=== PATIENT | male | born 1960 | race Caucasian/White ===

== ENCOUNTER 2024-07-06 19:15 | Inpatient (IN) | payer OTHER, MEDICARE ==
--- NOTE | 2024-07-06 20:00 | ED ---
Dizziness HPI - General Chief Complaint: Dizziness Stated Complaint: NV Time Seen by Provider: 07/06/24 19:20 Source: patient, EMS, RN notes reviewed, old records reviewed Mode of arrival: EMS Limitations: no limitations - History of Present Illness Initial Comments: This is a 64-year-old male to ER for evaluation of dizziness tonight patient is having symptoms of vertigo and nausea patient was seen in the hospital yesterday and is felt continued worsening symptoms here in the emergency department room spinning off-balance and difficulty with ambulation. MD Complaint: dizziness, difficulty walking -: hour(s) Timing: gradual onset Description: "room spinning" History of Same: No History of Trauma: No Severity: moderate Improves With: remaining still Worsens With: movement Associated Symptoms: ataxia - Related Data Home Medications Medication Instructions Recorded Confirmed Albuterol Inhaler [Ventolin Hfa 1 puff INHALATION RT-Q4H PRN 07/07/24 07/07/24 Inhaler] Aspirin EC [Ecotrin Low Dose] 81 mg PO DAILY 07/07/24 07/07/24 Cholecalciferol (Vitamin D3) 50 mcg PO DAILY 07/07/24 07/07/24 [Vitamin D3 (50 Mcg = 2000 Iu)] Gabapentin [Neurontin] 400 mg PO TID 07/07/24 07/07/24 Nitroglycerin Sl Tabs [Nitrostat] 0.4 mg SL Q5M PRN 07/07/24 07/07/24 Dilliner-3/Dha/Epa/Fish Oil [Fish Oil 1 cap PO BID 07/07/24 07/07/24 1,000 mg Softgel] PARoxetine HCL [Paxil] 30 mg PO BID 07/07/24 07/07/24 buPROPion SR [Wellbutrin SR] 150 mg PO BID 07/07/24 07/07/24 busPIRone HCL 15 mg PO BID 07/07/24 07/07/24 carvediloL [Coreg] 12.5 mg PO BID 07/07/24 07/07/24 Previous Rx's Medication Instructions Recorded Fenofibrate 50 mg PO DAILY #90 capsule 07/09/24 Meclizine [Antivert] 25 mg PO TID #60 tab 07/09/24 Rosuvastatin Calcium [Crestor] 40 mg PO DAILY #0 07/09/24 Allergies Allergy/AdvReac Type Severity Reaction Status Date / Time atorvastatin AdvReac Unknown Verified 07/07/24 11:38 Review of Systems ROS Statement: Those systems with pertinent positive or pertinent negative responses have been documented in the HPI. ROS Other: All systems not noted in ROS Statement are negative. Past Medical History Past Medical History: Cancer, CVA/TIA, Hyperlipidemia, Hypertension, Myocardial Infarction (CT) Additional Past Medical History / Comment(s): lung CA, cva 2019 right side , History of Any Multi-Drug Resistant Organisms: None Reported Past Surgical History: Back Surgery, Heart Catheterization With Stent, Orthopedic Surgery Additional Past Surgical History / Comment(s): lobectomy, knee , Past Psychological History: Depression Smoking Status: Former smoker Past Alcohol Use History: None Reported Past Drug Use History: Marijuana General Exam Limitations: no limitations General appearance: alert, in no apparent distress, anxious Head exam: Present: atraumatic, normocephalic, normal inspection Eye exam: Present: normal appearance, PERRL, EOMI, nystagmus. Absent: scleral icterus, conjunctival injection, periorbital swelling ENT exam: Present: normal exam, mucous membranes moist Neck exam: Present: normal inspection. Absent: tenderness, meningismus, lymphadenopathy Respiratory exam: Present: normal lung sounds bilaterally. Absent: respiratory distress, wheezes, rales, rhonchi, stridor Cardiovascular Exam: Present: normal rhythm, bradycardia, normal heart sounds. Absent: systolic murmur, diastolic murmur, rubs, gallop, clicks GI/Abdominal exam: Present: soft, normal bowel sounds. Absent: distended, tenderness, guarding, rebound, rigid Extremities exam: Present: normal inspection, full ROM, normal capillary refill. Absent: tenderness, pedal edema, joint swelling, calf tenderness Back exam: Present: normal inspection Neurological exam: Present: alert, oriented X3, CN II-XII intact Psychiatric exam: Present: normal affect, normal mood Skin exam: Present: warm, dry, intact, normal color. Absent: rash Course Vital Signs 07/06/24 07/06/24 07/06/24 19:20 19:45 20:00 Temperature 98.4 F 98.4 F 98.0 F Pulse Rate 55 L 56 L 56 L Pulse Rate [ Electronic Sensing Equipment Assembler ] Respiratory 18 20 20 Rate Blood Pressure 155/100 158/97 158/102 Blood Pressure [Right Arm Sitting] Blood Pressure [Right Arm Standing] Blood Pressure [Right Arm Supine] Blood Pressure [Right Arm] O2 Sat by Pulse 96 98 97 Oximetry 07/06/24 07/06/24 07/06/24 20:15 20:30 20:45 Temperature 98.2 F 98.1 F 98.0 F Pulse Rate 69 65 67 Pulse Rate [ Electronic Sensing Equipment Assembler ] Respiratory 17 17 20 Rate Blood Pressure 147/91 147/88 147/91 Blood Pressure [Right Arm Sitting] Blood Pressure [Right Arm Standing] Blood Pressure [Right Arm Supine] Blood Pressure [Right Arm] O2 Sat by Pulse 96 98 98 Oximetry 07/06/24 07/06/24 07/07/24 21:00 22:35 01:40 Temperature 97.8 F Pulse Rate 65 71 70 Pulse Rate [ Electronic Sensing Equipment Assembler ] Respiratory 20 18 18 Rate Blood Pressure 148/89 147/93 131/76 Blood Pressure [Right Arm Sitting] Blood Pressure [Right Arm Standing] Blood Pressure [Right Arm Supine] Blood Pressure [Right Arm] O2 Sat by Pulse 98 99 96 Oximetry 07/07/24 07/07/24 07/07/24 06:28 07:33 07:55 Temperature 97.9 F Pulse Rate 70 82 Pulse Rate [ Electronic Sensing Equipment Assembler ] Respiratory 18 18 Rate Blood Pressure 124/77 129/83 Blood Pressure [Right Arm Sitting] Blood Pressure [Right Arm Standing] Blood Pressure [Right Arm Supine] Blood Pressure [Right Arm] O2 Sat by Pulse 95 96 98 Oximetry 07/07/24 07/07/24 07/07/24 11:03 16:50 20:00 Temperature 97.9 F 98.0 F Pulse Rate 77 Pulse Rate [ 67 80 Electronic Sensing Equipment Assembler ] Respiratory 16 16 14 Rate Blood Pressure 143/92 Blood Pressure [Right Arm Sitting] Blood Pressure [Right Arm Standing] Blood Pressure [Right Arm Supine] Blood Pressure 150/96 140/85 [Right Arm] O2 Sat by Pulse 98 98 97 Oximetry 07/08/24 07/08/24 07/08/24 00:00 04:00 09:50 Temperature 98.2 F 98.0 F Pulse Rate 59 L Pulse Rate [ 65 55 L Electronic Sensing Equipment Assembler ] Respiratory 15 12 20 Rate Blood Pressure 123/71 Blood Pressure [Right Arm Sitting] Blood Pressure [Right Arm Standing] Blood Pressure [Right Arm Supine] Blood Pressure 134/70 123/67 [Right Arm] O2 Sat by Pulse 97 95 96 Oximetry 07/08/24 07/08/24 07/08/24 13:56 15:22 18:41 Temperature Pulse Rate 61 63 60 Pulse Rate [ Electronic Sensing Equipment Assembler ] Respiratory 20 16 Rate Blood Pressure 122/79 127/80 136/87 Blood Pressure [Right Arm Sitting] Blood Pressure [Right Arm Standing] Blood Pressure [Right Arm Supine] Blood Pressure [Right Arm] O2 Sat by Pulse 98 97 96 Oximetry 07/08/24 07/09/24 07/09/24 21:10 00:19 02:56 Temperature Pulse Rate 62 52 L 68 Pulse Rate [ Electronic Sensing Equipment Assembler ] Respiratory 12 16 18 Rate Blood Pressure 113/79 122/72 Blood Pressure [Right Arm Sitting] Blood Pressure [Right Arm Standing] Blood Pressure [Right Arm Supine] Blood Pressure [Right Arm] O2 Sat by Pulse 98 97 97 Oximetry 07/09/24 07/09/24 07/09/24 07:00 08:24 10:25 Temperature 97.9 F Pulse Rate 51 L 69 Pulse Rate [ 56 L Electronic Sensing Equipment Assembler ] Respiratory 19 20 Rate Blood Pressure 135/87 151/91 Blood Pressure [Right Arm Sitting] Blood Pressure [Right Arm Standing] Blood Pressure 146/91 [Right Arm Supine] Blood Pressure [Right Arm] O2 Sat by Pulse 98 98 Oximetry 07/09/24 07/09/24 07/09/24 10:27 10:29 11:16 Temperature Pulse Rate 53 L Pulse Rate [ 67 69 Electronic Sensing Equipment Assembler ] Respiratory 18 Rate Blood Pressure 145/95 Blood Pressure 125/89 [Right Arm Sitting] Blood Pressure 120/92 [Right Arm Standing] Blood Pressure [Right Arm Supine] Blood Pressure [Right Arm] O2 Sat by Pulse 98 Oximetry 07/09/24 15:10 Temperature 97.9 F Pulse Rate 81 Pulse Rate [ Electronic Sensing Equipment Assembler ] Respiratory 20 Rate Blood Pressure 144/94 Blood Pressure [Right Arm Sitting] Blood Pressure [Right Arm Standing] Blood Pressure [Right Arm Supine] Blood Pressure [Right Arm] O2 Sat by Pulse 98 Oximetry - Reevaluation(s) Reevaluation #1: Medical records reviewed Reevaluation #2: Patient symptoms unchanged Reevaluation #3: Informed of results questions answered Reevaluation #4: Was pt. sent in by a medical professional or institution (, PA, RESERVATIONS AND TICKETING AGENT, urgent care, hospital, or fdc...) When possible be specific @ -no Did you speak to anyone other than the patient for history (EMS, parent, family, police, friend...)? What history was obtained from this source @ -no Did you review nursing and triage notes (agree or disagree)? Why? @ -agree Are old charts reviewed (outside hosp., previous admission, EMS record, old EKG, old radiological studies, urgent care reports/EKG's, fdc records)? Report findings @ -yes Differential Diagnosis (chest pain, altered mental status, abdominal pain women, abdominal pain men, vaginal bleeding, weakness, fever, dyspnea, syncope, headache, dizziness, GI bleed, back pain, seizure, CVA, palpatations, mental health, musculoskeletal)? @ -prior EKG interpreted by me (3pts min.). @ -yes X-rays interpreted by me (1pt min.). @ -no CT interpreted by me (1pt min.). @ -yes negative for acute disease U/S interpreted by me (1pt. min.). @ -no What testing was considered but not performed or refused? (CT, X-rays, U/S, labs)? Why? @ -none What meds were considered but not given or refused? Why? @ -none Did you discuss the management of the patient with other professionals (professionals i.e. , PA, RESERVATIONS AND TICKETING AGENT, lab, RT, psych nurse, social media project manager, salesperson trailers and motor homes, teacher, financial services officer, case mgr)? Give summary @ -no Was smoking cessation discussed for >3mins.? @ -no Was critical care preformed (if so, how long)? @ -no Were there social determinants of health that impacted care today? How? (Homelessness, low income, unemployed, alcoholism, drug addiction, transportation, low edu. Level, literacy, decrease access to med. care, fpc, rehab)? @ -none Was there de-escalation of care discussed even if they declined (Discuss DNR or withdrawal of care, Hospice)? DNR status @ -no What co-morbidities impacted this encounter? (DM, HTN, Smoking, COPD, CAD, Cancer, CVA, ARF, Chemo, Hep., AIDS, mental health diagnosis, sleep apnea, morbid obesity)? @ -none Was patient admitted / discharged? Hospital course, mention meds given and route, prescriptions, significant lab abnormalities, going to OR and other pertinent info. @ - 64 male for acute vertiginous symptoms, patient will admit to rule out acute CVA as cause of vertigo. Patient having difficulty with ambulation and persistent vertigo here in the ER Admitted extremes of age Undiagnosed new problem with uncertain prognosis? @ -no Drug Therapy requiring intensive monitoring for toxicity (Heparin, Nitro, Insulin, Cardizem)? @ -no Were any procedures done? @ -no Diagnosis/symptom? @ -Vertigo, dizziness Acute, or Chronic, or Acute on Chronic? @ -Acute Uncomplicated (without systemic symptoms) or Complicated (systemic symptoms)? @ -Complicated Side effects of treatment? @ -no Exacerbation, Progression, or Severe Exacerbation? @ -exacerbation Poses a threat to life or bodily function? How? (Chest pain, USA, CT, pneumonia, PE, COPD, DKA, ARF, appy, cholecystitis, CVA, Diverticulitis, Homicidal, Suicidal, threat to staff... and all critical care pts) @ -yes 07/15/24 02:05 Reevaluation #5: Differential Dizziness: Benign paroxysmal positional Vertigo, Meniere's disease, otitis media, acoustic neuroma, vertebrobasilar insufficiency, cerebellar stroke, encephalitis, hypovolemic, arrhythmia, coronary artery syndrome, anemia, this is not meant to be an all-inclusive list - Consultations Consultation #1: Spoke with admitting physicians who agreed to admit this patient EKG Findings - EKG Comments: EKG Findings:: EKG is sinus bradycardia 59 NJ 204 QRS 105 QTc 425 - EKG Results: EKG: interpreted by ERMD Medical Decision Making - Medical Decision Making 64 male for acute vertiginous symptoms, patient will admit to rule out acute CVA as cause of vertigo. Patient having difficulty with ambulation and persistent vertigo here in the ER - Lab Data Result diagrams: 07/06/24 20:01 07/06/24 20:01 Lab Results 07/06/24 07/06/24 07/06/24 Range/Units 20:01 20:01 20:01 WBC 11.9 H (3.8-10.6) k/uL RBC 5.01 (4.30-5.90) m/uL Hgb 14.9 (13.0-17.5) gm/dL Hct 45.2 (39.0-53.0) % MCV 90.3 (80.0-100.0) fL MCH 29.8 (25.0-35.0) pg MCHC 33.0 (31.0-37.0) g/dL RDW 13.7 (11.5-15.5) % Plt Count 251 (150-450) k/uL MPV 8.5 Neutrophils % 83 % Lymphocytes % 11 % Monocytes % 4 % Eosinophils % 1 % Basophils % 0 % Neutrophils # 9.9 H (1.3-7.7) k/uL Lymphocytes # 1.3 (1.0-4.8) k/uL Monocytes # 0.5 (0-1.0) k/uL Eosinophils # 0.1 (0-0.7) k/uL Basophils # 0.0 (0-0.2) k/uL PT 11.3 (10.0-12.5) sec INR 1.0 (<1.2) APTT 22.3 (22.0-30.0) sec Sodium 139 (137-145) mmol/L Potassium 4.5 (3.5-5.1) mmol/L Chloride 104 (98-107) mmol/L Carbon Dioxide 24 (22-30) mmol/L Anion Gap 11 mmol/L BUN 10 (9-20) mg/dL Creatinine 1.06 (0.66-1.25) mg/dL Est GFR (CKD-EPI)AfAm 87 (>60 ml/min/1.73 sqM) Est GFR (CKD-EPI)NonAf 75 (>60 ml/min/1.73 sqM) Glucose 121 H (74-99) mg/dL Calcium 10.1 (8.4-10.2) mg/dL Total Bilirubin 0.7 (0.2-1.3) mg/dL AST 32 (17-59) U/L ALT 28 (4-49) U/L Alkaline Phosphatase 99 (38-126) U/L Creatine Kinase 224 H (55-170) U/L Troponin I (0.000-0.034) ng/mL Total Protein 7.6 (6.3-8.2) g/dL Albumin 4.7 (3.5-5.0) g/dL Triglycerides (0.00-149.00) mg/dL Cholesterol (0.00-200.00) mg/dL LDL Cholesterol Direct (0.00-129.00) mg/dL LDL Cholesterol, Calc mg/dL VLDL Cholesterol, Calc (5.00-40.00) mg/dL HDL Cholesterol (40.00-60.00) mg/dL Cholesterol/HDL Ratio Ratio 07/06/24 07/07/24 Range/Units 20:01 05:44 WBC (3.8-10.6) k/uL RBC (4.30-5.90) m/uL Hgb (13.0-17.5) gm/dL Hct (39.0-53.0) % MCV (80.0-100.0) fL MCH (25.0-35.0) pg MCHC (31.0-37.0) g/dL RDW (11.5-15.5) % Plt Count (150-450) k/uL MPV Neutrophils % % Lymphocytes % % Monocytes % % Eosinophils % % Basophils % % Neutrophils # (1.3-7.7) k/uL Lymphocytes # (1.0-4.8) k/uL Monocytes # (0-1.0) k/uL Eosinophils # (0-0.7) k/uL Basophils # (0-0.2) k/uL PT (10.0-12.5) sec INR (<1.2) APTT (22.0-30.0) sec Sodium (137-145) mmol/L Potassium (3.5-5.1) mmol/L Chloride (98-107) mmol/L Carbon Dioxide (22-30) mmol/L Anion Gap mmol/L BUN (9-20) mg/dL Creatinine (0.66-1.25) mg/dL Est GFR (CKD-EPI)AfAm (>60 ml/min/1.73 sqM) Est GFR (CKD-EPI)NonAf (>60 ml/min/1.73 sqM) Glucose (74-99) mg/dL Calcium (8.4-10.2) mg/dL Total Bilirubin (0.2-1.3) mg/dL AST (17-59) U/L ALT (4-49) U/L Alkaline Phosphatase (38-126) U/L Creatine Kinase (55-170) U/L Troponin I <0.012 (0.000-0.034) ng/mL Total Protein (6.3-8.2) g/dL Albumin (3.5-5.0) g/dL Triglycerides 624.00 H (0.00-149.00) mg/dL Cholesterol 234.00 H (0.00-200.00) mg/dL LDL Cholesterol Direct 79.60 (0.00-129.00) mg/dL LDL Cholesterol, Calc mg/dL VLDL Cholesterol, Calc 124.80 H (5.00-40.00) mg/dL HDL Cholesterol 30.40 L (40.00-60.00) mg/dL Cholesterol/HDL Ratio 7.70 Ratio - EKG Data -: EKG Interpreted by Me - Radiology Data Radiology results: report reviewed (CT brain and CT angio head neck negative for acute disease), image reviewed Disposition Clinical Impression: Vertigo, Dizziness Disposition: ADMITTED IP TO THIS [facility] Condition: Serious Is patient prescribed a controlled substance at d/c from ED?: No Time of Disposition: 20:30
[2024-07-06] MEDS: diphenhydrAMINE 50 MG/ML 1 ML VIAL IVP STA (20:19)
[2024-07-06] MEDS: ONDANSETRON 4 MG/2 ML VIAL IVP STA (20:19)
[2024-07-06 20:23] LABS: Basophils % (A) 0 %; Eosinophils # (A) 0.1 k/uL (0-0.7); Eosinophils % (A) 1 %; HCT 45.2 % (39.0-53.0); HGB 14.9 gm/dL (13.0-17.5); Lymphocytes # (A) 1.3 k/uL (1.0-4.8); Lymphocytes % (A) 11 %; MCH 29.8 pg (25.0-35.0); MCV 90.3 fL (80.0-100.0); Mean Platelet Volume 8.5; Monocytes # (A) 0.5 k/uL (0-1.0); Monocytes % (A) 4 %; Neutrophils # (A) 9.9 k/uL (1.3-7.7); Neutrophils % (A) 83 %; Platelet Count 251 k/uL (150-450); RBC 5.01 m/uL (4.30-5.90); RDW 13.7 % (11.5-15.5); WBC 11.9 k/uL (3.8-10.6)
[2024-07-06 20:37] LABS: ALT 28 U/L (4-49); AST 32 U/L (17-59); African American GFR (CKD) 87 (>60 ml/min/1.73 sqM); Albumin 4.7 g/dL (3.5-5.0); Alkaline Phosphatase 99 U/L (38-126); Anion Gap 11 mmol/L; Blood Urea Nitrogen 10 mg/dL (9-20); Calcium 10.1 mg/dL (8.4-10.2); Carbon Dioxide 24 mmol/L (22-30); Chloride 104 mmol/L (98-107); Creatine Kinase 224 U/L (55-170); Glucose 121 mg/dL (74-99); Non-African American GFR(CKD) 75 (>60 ml/min/1.73 sqM); Potassium 4.5 mmol/L (3.5-5.1); Sodium 139 mmol/L (137-145); Total Bilirubin 0.7 mg/dL (0.2-1.3); Total Protein 7.6 g/dL (6.3-8.2)
[2024-07-06 20:40] LABS: Partial Thromboplastin Time 22.3 sec (22.0-30.0); Prothrombin Time 11.3 sec (10.0-12.5)
--- NOTE | 2024-07-06 20:40 | CT ---
EXAMINATION TYPE: CT brain wo con DATE OF EXAM: 07/06/2024 8:14 PM COMPARISON: None. CLINICAL INDICATION: Male, 64 years old with history of dizzines/ neuro, dizziness, htn, hx of cva TECHNIQUE: Brain: Axial CT images of the brain were obtained with coronal and sagittal reformats created and rev iewed. Contrast used: None. Oral contrast used: None. CT DLP: 1169.1 mGycm, Automated exposure control for dose reduction was used. FINDINGS: Brain: No acute intracranial hemorrhage, midline shift or significant mass effect. Patchy periventricular an d subcortical white matter hypoattenuating regions suggestive of chronic microvascular ischemic disea se. Possible old small right-sided lacunar infarct in the region of the posterior aspect of the right internal capsule. Basal cisterns appear patent. No sizable extra-axial fluid collection. No sizable scalp hematoma or depressed skull fracture. Paranasal sinuses and mastoid air cells appear grossly pa tent. IMPRESSION: No acute intracranial abnormality identified. [facility], , 07/06/2024 8:37 PM
--- NOTE | 2024-07-06 20:49 | CT ---
EXAMINATION TYPE: CT angio head neck DATE OF EXAM: 07/06/2024 8:27 PM COMPARISON: None. CLINICAL INDICATION: Male, 64 years old with history of cva; PHH, dizziness, htn, nausea. hx of cva. TECHNIQUE: Axially acquired helical CT angiogram of the head and neck was obtained with contrast. Axi al images are supplemented with 3D reconstructions and MIP images which were post-processed at an in dependent workstation. NASCET criteria used. Contrast used:65cc mL of Isovue 370 with IV Contrast, Oral contrast used: None. CT DLP: 593.1 mGycm, Automated exposure control for dose reduction was used. FINDINGS: CTA HEAD: No evidence of acute intracranial hemorrhage, mass effect, or midline shift. The ventricles, sulci, a nd cisterns are unremarkable. Vertebral arteries: The vertebral arteries are patent. Vertebral artery dominance: Codominant Basilar artery: The basilar artery is intact. The basilar artery bifurcation is normal. Internal Carotid arteries: The cervical, petrous, cavernous and supraclinoid segments are normal. BURTON: Patent with no evidence of aneurysm. ACOM: Present without evidence of aneurysm. MCA: Patent with no evidence of aneurysm. FISH ROD MAKER: Patent with no evidence of aneurysm. PCOM: Hypoplastic left P-comm. Right P-comm present. Dural sinuses: Patent. CTA NECK: Right Carotid System: The common carotid artery and external carotid artery are patent. The carotid bifurcation demonstrate s no evidence of hemodynamically significant stenosis. The remaining portions of the internal carotid artery demonstrate normal size without significant narrowing. Left Carotid System: The common carotid artery and external carotid artery are patent. The carotid bifurcation demonstrate s no evidence of hemodynamically significant stenosis. The remaining portions of the internal carotid artery demonstrate normal size without significant narrowing. Vertebral arteries are patent without evidence hemodynamically significant stenosis. There is a three-vessel aortic arch. The origins of the great vessels are patent. No evidence of hemo dynamically significant stenosis. Emphysema in the partially visualized lung apices. Upper thorax: IMPRESSION: 1. No evidence of dissection of the cervical internal carotid arteries or vertebral arteries. 2. No any evidence of significant stenosis at the carotid bifurcations. 3. No evidence of intracranial high-grade stenosis or intracranial aneurysm. [facility], , 07/06/2024 8:46 PM
[2024-07-06] MEDS: ASPIRIN 325 MG TAB PO STA (21:12)
[2024-07-06] MEDS: ATORVASTATIN 80 MG TAB PO SCH (21:12)
[2024-07-06] MEDS: SODIUM CHLORIDE 0.9% 1,000 ML IV SCH (21:13)
--- NOTE | 2024-07-06 23:15 | P.HPIM ---
History of Present Illness H&P Date: 07/06/24 Chief Complaint: Vertigo, CVA Patient is a very pleasant 64-year-old male with past medical history of CVA/TIA in 2019, hyperlipidemia, hypertension, MIx5 per patient, and lung cancer presents to the ED with chief complaint of dizziness with associated nausea and vomiting. Patient describes a feeling as being on a "[id number]". Patient states this started the night before last. He states that yesterday he went to [facility] where chest x-ray and CT scan were done and the patient was discharged home on meclizine. Patient states this morning he took his medica tions and then threw them up shortly after. He states that he tried to take the meclizine but then threw up again. He states the vomit is clear yellowish without blood. He also states he has had a very decreased appetite and has not eaten for the last 2 days. He states that he had a similar episode of vertigo and vomiting in May of this year. Currently the patient states that he has a mild headache and slightly dizzy. He denies any loss of consciousness, slurred speech, facial asymmetry, extremity weakness, chest pain, shortness of breath, headaches, fevers, chills, diarrhea. Patient reports that these symptoms are not related to any specific position or changing position, happens most of the time throughout the day and lasts for very long time when it happens, He feels it could be related to his new cholestrol medicine that he took one dose of before all this happened. the medicine is Crestor. he did not take any more doses today, however continue to have the same symptoms ED documentation reviewed. Vitals on admission temperature 98, heart rate 56, respiratory rate 20, blood pressure 158/102, O2 saturation 97% on room air EKG independently interpreted as sinus bradycardia with rate of 59 bpm and QTc [address] brain without contrast showed no acute intracranial hemorrhage, midline shift or significant mass effect. Possible old small right sided lacunar infarct. CTA showed no evidence of dissection of internal carotid arteries or vertebral arteries, no evidence of stenosis at the carotid bifurcations, no evidence of intracranial high-grade stenosis or intracranial aneurysm. Labs on admission show WBCs 11.9 with left shift, hemoglobin 14.9, platelets 251. PT 11.3, INR 1, PTT 22.3. Sodium 139, potassium 4.5, chloride 104, bicarb 24, BUN 10, creatinine 1.06, glucose 121. CK 224. Troponin negative, Review of systems: Pertinent positives and negatives as discussed in HPI, a complete review of syst ems was performed and all other systems are negative. PMH: CVA/TIA, hyperlipidemia, hypertension, [place], lung cancer PSH: Heart cath with stent placement Allergies: Social history: Tobacco: quit smoking in 2019 pack to 1.5 a day for 40 years Alcohol: none Recreational drugs: smoke marijuana occasionally Travel: none Sick contacts: none Physical examination: Vital signs reviewed General: nontoxic, no distress, appears at stated age, obese Derm: warm, dry, intact Head: atraumatic, normocephalic, symmetric Eyes: anicteric sclera Mouth: no lip lesion, mucus membranes moist Cardiovascular: S1 S2 reg, no murmur Lungs: CTA bilateral, no rhonchi, no rales, no accessory muscle use Abdominal: soft, non-tender to palpation, nondistended Extremities: No cyanosis, clubbing, or pedal edema. Neuro: Alert, Oriented to person, time and place, Gross neurological examination did not reveal any focal deficits. Cranial nerves II to XII grossly intact. Bilateral upper and lower extremity muscle strength intact and sensation intact. no nystagmus Psych: well appearing, appropriate affect Assessment/Plan: 64 year old male with CAD , hypertension , hisotry of stroke presented with two day history of vertigo , I discussed the case with ED doc and I accepted the admission for vertigo , rule out CVA. Active: Vertigo rule out CVA Continue aspirin 81 mg daily patient does not tolerate lipitor , and feels crestor has given him the possible side effect of dizziness. start Zetia Neurochecks per protocol Consult neurology Consult PT/OT Consult speech therapy check Echocardiogram Cardiac monitoring Fall precautions EKG independently interpreted as sinus bradycardia with rate of 59 bpm and QTc [address] brain without contrast showed no acute intracranial hemorrhage, midline shift or significant mass effect. Possible old small right sided lacunar infarct. CTA showed no evidence of dissection of internal carotid arteries or vertebral arteries, no evidence of stenosis at the carotid bifurcations, no evidence of intracranial high-grade stenosis or intracranial aneurysm. Continue meclizine Zofran 4 mg IVP q 8hr as needed for nausea check orthostatic vital signs Chronic: Hypertension resume home meds Hyperlipidemia resume home meds verify home meds F: 0.9% NS at 100 mL/h E: Replete as needed N: Heart healthy diet A: As tolerated DVT prophylaxis: Lovenox 40 mg subcutaneously daily The patient is admitted with an anticipated more than 2 midnight stay for evaluation of CVA CODE STATUS: Full code Discussed with: Patient Anticipated discharge place: Pending clinical course I have seen and evaluated the patient today. I Discussed the case with the resident and agree with the resident's findings I edited the assessment and plan as necessary as documented in the resident's note. Past Medical History Past Medical History: Cancer, CVA/TIA, Hyperlipidemia, Hypertension, Myocardial Infarction ([place]) Additional Past Medical History / Comment(s): lung CA, cva 2019 right side , History of Any Multi-Drug Resistant Organisms: None Reported Past Surgical History: Back Surgery, Heart Catheterization With Stent, Orthopedic Surgery Additional Past Surgical History / Comment(s): lobectomy, knee , Past Psychological History: Depression Smoking Status: Former smoker Past Alcohol Use History: None Reported Past Drug Use History: Marijuana Medications and Allergies Allergies Allergy/AdvReac Type Severity Reaction Status Date / Time No Known Allergies Allergy Verified 07/06/24 20:34 Physical Exam Vitals: Vital Signs Temp Pulse Resp BP Pulse Ox 07/06/24 21:00 97.8 F 65 20 148/89 98 07/06/24 20:45 98.0 F 67 20 147/91 98 07/06/24 20:30 98.1 F 65 17 147/88 98 07/06/24 20:15 98.2 F 69 17 147/91 96 07/06/24 20:00 98.0 F 56 L 20 158/102 97 07/06/24 19:45 98.4 F 56 L 20 158/97 98 07/06/24 19:20 98.4 F 55 L 18 155/100 96 Intake and Output 07/06/24 07/06/24 07/06/24 06:59 14:59 22:59 Other: Weight 99.79 kg Results CBC & Chem 7: 07/06/24 20:01 07/06/24 20:01 Labs: Abnormal Lab Results - Last 24 Hours (Table) 07/06/24 07/06/24 Range/Units 20:01 20:01 WBC 11.9 H (3.8-10.6) k/uL Neutrophils # 9.9 H (1.3-7.7) k/uL Glucose 121 H (74-99) mg/dL Creatine Kinase 224 H (55-170) U/L
[2024-07-07] MEDS ORDERED: MECLIZINE 25 MG TAB PO PRN (01:17)
[2024-07-07] MEDS: ACETAMINOPHEN TAB 325 MG TAB PO PRN (02:16)
[2024-07-07] MEDS: MECLIZINE 25 MG TAB PO PRN (02:17)
[2024-07-07] MEDS: METOCLOPRAMIDE 5 MG/ML 2 ML VIAL IVP STA (03:57)
[2024-07-07] MEDS: EZETIMIBE 10 MG TAB PO SCH (08:45)
[2024-07-07] MEDS: ASPIRIN 81 MG PO SCH (08:45)
[2024-07-07] MEDS: ENOXAPARIN 40 MG/0.4 ML SYRINGE SQ SCH (08:47)
[2024-07-07] MEDS ORDERED: ASPIRIN 325 MG TAB PO SCH (09:00)
[2024-07-07] MEDS: ONDANSETRON 4 MG/2 ML VIAL IVP PRN (10:02)
[2024-07-07 10:29] LABS: Chol/HDL Ratio 7.7 Ratio; HDL Cholesterol 30.4 mg/dL (40.00-60.00); VLDL Calculation 124.8 mg/dL (5.00-40.00)
[2024-07-07 10:40] LABS: LDL Cholesterol,Direct Reflex 79.6 mg/dL (0.00-129.00)
--- NOTE | 2024-07-07 11:41 | P.PN ---
Subjective Progress Note Date: 07/07/24 64-year-old male with past medical history of CVA/TIA in 2019, hyperlipidemia, hypertension, CAD, and lung CA presented to the ED for dizziness with associated nausea and vomiting. Patient describes a feeling as being on a "[id number]". Patient states this started the night before last. He states that yesterday he went to [facility] where chest x-ray and CT scan were done and the patient was discharged home on meclizine. Patient states this morning he took his medications and then threw them up shortly after. Vitals on admission T 98, HR 56, RR 20, BP 158/102, O2 saturation 97% on RA. EKG shows sinus bradycardia with rate of 59 bpm and QTc [address] brain showed possible old small right sided lacunar infarct. CTA showed no evidence of intracranial high-grade stenosis or intracranial aneurysm. Patient is admitted for further workup and management. 07/07 Patient was seen and examined. He continues to report vertigo symptoms with any movement of his head associated with nausea and vomiting. Reports plugged years. Recent URI 1 month ago. Unable to tolerate PO at this time. Lipid panel T. Chol 234, TG 624, HDL 30.4. States he is on ASA, Crestor, Paxil, Buspar, Coreg, Gabapentin at home unsure of dosing. General: not toxic, no distress, appears at stated age Derm: warm, dry Head: atraumatic, normocephalic, symmetric Eyes: EOMI, no lid lag, anicteric sclera Mouth: no lip lesion, mucus membranes moist Cardiovascular: S1S2 reg, no murmur Lungs: Clear to auscultation BL Ext: no gross muscle atrophy, no edema, no contractures Neuro: no focal neuro deficits Psych: Alert, oriented, appropriate affect Based on my assessment of this patient, this patient meets a high complexity level of care. Vertigo: Appears peripheral. Rule out CVA. ASA 81 mg PO QD. Zetia 10 mg PO QD. Obtain Echo, MRI brain. Advanced neurochecks. Telemetry monitoring. PT/OT/ST consult. Neurology consult. Hypertension: Verify home meds. Dyslipidemia: Zetia as above. CAD: ASA and Zetia as above. Verify home meds. Lung CA: Outpatient follow up. Previously followed up with [facility]. CODE STATUS: FULL CODE DVT Prophylaxis: Lovenox SQ GI Prophylaxis: Designated medical POA if patient is not able to make medical decisions for themselves: I have reviewed the following csm consultant notes: I have reviewed the results of the following tests: Lipid panel. I have ordered the following tests: Echo, MRI brain pending. I have discussed the care of this patient with the following independent historian: I have independently interpreted the following test below: I have discussed the management of this patient with the following physician: Objective - Vital Signs Vital signs: Vital Signs Temp 97.9 F 07/07/24 07:33 Pulse 82 07/07/24 07:33 Resp 18 07/07/24 07:33 BP 129/83 07/07/24 07:33 Pulse Ox 98 07/07/24 07:55 FiO2 Intake & Output 07/06/24 07/07/24 07/07/24 18:59 06:59 18:59 Weight 99.79 kg - Labs CBC & Chem 7: 07/06/24 20:01 07/06/24 20:01 Labs: Abnormal Lab Results - Last 24 Hours (Table) 07/06/24 07/06/24 Range/Units 20:01 20:01 WBC 11.9 H (3.8-10.6) k/uL Neutrophils # 9.9 H (1.3-7.7) k/uL Glucose 121 H (74-99) mg/dL Creatine Kinase 224 H (55-170) U/L
[2024-07-07] MEDS ORDERED: LORazepam 1 MG TAB PO PRN (11:45)
[2024-07-07] MEDS: diphenhydrAMINE 50 MG/ML 1 ML VIAL IVP PRN (13:19)
--- NOTE | 2024-07-07 14:04 | P.CNNES ---
History of Present Illness Consult date: 07/07/24 Requesting physician: Hardy Fofana Reason for Consult: vertigo History of Present Illness: This is a 64-year-old gentleman who presents emergency department because of nausea vomiting and dizziness. Patient stated that his symptoms began about 2 to 3 days ago. He feels the room is spinning and described as a tilt room or world. Feels dizziness is worse when he stands up. Denies any focal weakness, numbness, visual disturbance, ringing in the ears or hearing loss. Denies any recent infection. He does have a history of stroke in 2019 and he has residual right-sided weakness and some dysarthria. He has history of hypertension, coronary artery disease status post stent. He is on aspirin 81 mg daily. He does follow-up with a silverware assembler as an outpatient. Some of the workup during this hospital visit consisted of: Lipid panel is triglyceride 624, cholesterol is 234, LDL 79 and HDL is 30 I reviewed the rest of the lab workup. CT of the head is reported as no acute intracranial abnormality identified. Personally reviewed the CT and I agree there is no acute or subacute stroke CT angiography of the head and neck is reported as no evidence of dissection of cervical internal carotid artery or vertebral artery. No any evidence of significant stenosis at the carotid bifurcation. No evidence of intracranial high-grade stenosis or intracranial aneurysm. Review of Systems As per HPI. Past Medical History Past Medical History: Cancer, CVA/TIA, Hyperlipidemia, Hypertension, Myocardial Infarction ([place]) Additional Past Medical History / Comment(s): lung CA, cva 2019 right side , History of Any Multi-Drug Resistant Organisms: None Reported Past Surgical History: Back Surgery, Heart Catheterization With Stent, Orthopedic Surgery Additional Past Surgical History / Comment(s): lobectomy, knee , Past Psychological History: Depression Smoking Status: Former smoker Past Alcohol Use History: None Reported Past Drug Use History: Marijuana Medications and Allergies Home Medications Medication Instructions Recorded Confirmed Type Albuterol Inhaler [Ventolin Hfa 1 puff INHALATION RT-Q4H PRN 07/07/24 07/07/24 History Inhaler] Aspirin EC [Ecotrin Low Dose] 81 mg PO DAILY 07/07/24 07/07/24 History Cholecalciferol (Vitamin D3) 50 mcg PO DAILY 07/07/24 07/07/24 History [Vitamin D3 (50 Mcg = 2000 Iu)] Gabapentin [Neurontin] 400 mg PO TID 07/07/24 07/07/24 History Nitroglycerin Sl Tabs [Nitrostat] 0.4 mg SL Q5M PRN 07/07/24 07/07/24 History [place]-3/Dha/Epa/Fish Oil [Fish Oil 1 cap PO BID 07/07/24 07/07/24 History 1,000 mg Softgel] PARoxetine HCL [Paxil] 30 mg PO BID 07/07/24 07/07/24 History Rosuvastatin Calcium [Crestor] 20 mg PO DAILY 07/07/24 07/07/24 History buPROPion SR [Wellbutrin SR] 150 mg PO BID 07/07/24 07/07/24 History busPIRone HCL 15 mg PO BID 07/07/24 07/07/24 History carvediloL [Coreg] 12.5 mg PO BID 07/07/24 07/07/24 History Allergies Allergy/AdvReac Type Severity Reaction Status Date / Time atorvastatin AdvReac Unknown Verified 07/07/24 11:38 Physical Examination - Vital Signs Vital Signs: Vital Signs Temp Pulse Resp BP Pulse Ox 07/07/24 11:03 77 16 143/92 98 07/07/24 07:55 98 07/07/24 07:33 97.9 F 82 18 129/83 96 07/07/24 06:28 70 18 124/77 95 07/07/24 01:40 70 18 131/76 96 07/06/24 22:35 71 18 147/93 99 07/06/24 21:00 97.8 F 65 20 148/89 98 07/06/24 20:45 98.0 F 67 20 147/91 98 07/06/24 20:30 98.1 F 65 17 147/88 98 07/06/24 20:15 98.2 F 69 17 147/91 96 07/06/24 20:00 98.0 F 56 L 20 158/102 97 07/06/24 19:45 98.4 F 56 L 20 158/97 98 07/06/24 19:20 98.4 F 55 L 18 155/100 96 Intake and Output 07/06/24 07/07/24 07/07/24 22:59 06:59 14:59 Other: Weight 99.79 kg GENERAL: The patient is lying in bed and is not in acute distress. NEUROLOGICAL: Higher mental function: The patient is awake, alert, oriented to self, place and time. Patient is following commands. No aphasia and no neglect. Cranial nerves: The pupils are round, equal and reactive to light and accommodation. Visual hoffmann are full to confrontation throughout. Extraocular movement is intact no nystagmus is noted. Facial sensation is normal to touch throughout. The facial strength is normal throughout. Hearing is normal bilaterally to hand rub. Tongue is midline and moved [id number] without any difficulty. No dysarthria is noted. Shoulder shrug is normal bilaterally. Motor: Patient refuses gait because of his dizziness. The strength is 5 over 5 throughout. Normal tone and bulk. Cerebellum: Normal finger to nose bilaterally. Sensation: Sensation is normal to touch throughout. Results - Laboratory Findings CBC and BMP: 07/06/24 20:01 07/06/24 20:01 Abnormal Lab Findings: Abnormal Labs 07/06/24 07/06/24 07/07/24 20:01 20:01 05:44 WBC 11.9 H Neutrophils # 9.9 H Glucose 121 H Creatine Kinase 224 H Triglycerides 624.00 H Cholesterol 234.00 H VLDL Cholesterol, Calc 124.80 H HDL Cholesterol 30.40 L Assessment and Plan Assessment: This is a 64-year-old gentleman who presented emergency department because of nausea vomiting and dizziness and has been having the symptoms for the last 2 to 3 days. Acute vertigo with nausea vomiting seems more peripheral. No focal deficit on examination History of coronary artery status post stent History of stroke in 2019 with subjective right sided weakness and dysarthria according to the patient Dyslipidemia Plan: MRI of the brain, 2D echo ordered and pending I spoke with the primary team and recommend changing meclizine 25 mg 1 tablet 3 times daily as needed to scheduled to do that for 7 days and after that to do that for as needed. Will give the patient one-time Valium 5 mg IV. Patient received Benadryl and is on Benadryl as well as Zofran as needed Patient was started on aspirin 81 mg daily by the primary team for concern for stroke. Continue neurochecks Cardiac monitoring PT OT and CONCRETE SMOOTHER are consulted Will defer the rest of the medical management to primary other specialist For DVT prophylaxis the patient is on Lovenox Thank you for the consultation. The plan is discussed with the patient and the primary attending Dr. Self will resume neurology service tomorrow AM Time with Patient: Greater than 30
[2024-07-07] MEDS: MECLIZINE 25 MG TAB PO SCH (15:26)
[2024-07-07] MEDS: buPROPion SR 150 MG TABLET.ER PO SCH (21:19)
[2024-07-07] MEDS: busPIRone HCl 5 MG TAB PO SCH (21:19)
[2024-07-07] MEDS: PARoxetine 10 MG TAB PO SCH (21:20)
[2024-07-07] MEDS: GABAPENTIN 400 MG CAP PO SCH (21:21)
[2024-07-07] MEDS: carvediloL 12.5 MG TAB PO SCH (21:22)
[2024-07-08] MEDS ORDERED: ASPIRIN-ACET-CAFF 250-250-65MG 1 EACH TAB PO PRN (12:58)
--- NOTE | 2024-07-08 13:02 | P.PN ---
Subjective Progress Note Date: 07/08/24 64-year-old male with past medical history of CVA/TIA in 2019, hyperlipidemia, hypertension, CAD, and lung CA presented to the ED for dizziness with associated nausea and vomiting. Patient describes a feeling as being on a "[id number]". Patient states this started the night before last. He states that yesterday he went to [facility] where chest x-ray and CT scan were done and the patient was discharged home on meclizine. Patient states this morning he took his medications and then threw them up shortly after. Vitals on admission T 98, HR 56, RR 20, BP 158/102, O2 saturation 97% on RA. EKG shows sinus bradycardia with rate of 59 bpm and QTc [address] brain showed possible old small right sided lacunar infarct. CTA showed no evidence of intracranial high-grade stenosis or intracranial aneurysm. Patient is admitted for further workup and management. 07/07 Patient was seen and examined. He continues to report vertigo symptoms with any movement of his head associated with nausea and vomiting. Reports plugged years. Recent URI 1 month ago. Unable to tolerate PO at this time. Lipid panel T. Chol 234, TG 624, HDL 30.4. States he is on ASA, Crestor, Paxil, Buspar, Coreg, Gabapentin at home unsure of dosing. 07/08 Patient was seen and examined. Improved vertigo. Reports a throbbing head ache. Drinks 1 pot of coffee throughout the day. Echo and MRI brain pending. General: not toxic, no distress, appears at stated age Derm: warm, dry Head: atraumatic, normocephalic, symmetric Eyes: EOMI, no lid lag, anicteric sclera Mouth: no lip lesion, mucus membranes moist Cardiovascular: S1S2 reg, no murmur Lungs: Clear to auscultation BL Ext: no gross muscle atrophy, no edema, no contractures Neuro: no focal neuro deficits Psych: Alert, oriented, appropriate affect Based on my assessment of this patient, this patient meets a high complexity level of care. Vertigo: Appears peripheral. Rule out CVA. ASA 81 mg PO QD. Zetia 10 mg PO QD. Benadryl 25 mg IV Q6H PRN + Valium 5 mg IV Q4H PRN + Meclizine 25 mg PO TID for Vertigo. Obtain Echo, MRI brain. Advanced neurochecks. Telemetry monitoring. PT/OT/ST consult. Neurology on board. Headache: Caffeine related? Excedrin 1 tab PO Q4H PRN. Hypertension: Coreg 12.5 mg PO BID. Dyslipidemia: Zetia as above. CAD: ASA, Coreg and Zetia as above. Anxiety and Depression: Buspar 15 mg PO BID. Bupropion 150 mg PO BID. Paxil 30 mg PO BID. Lung CA: Outpatient follow up. Previously followed up with [facility]. CODE STATUS: FULL CODE DVT Prophylaxis: Lovenox SQ GI Prophylaxis: Designated medical POA if patient is not able to make medical decisions for themselves: Dispo: Plans for possible discharge home today if Echo and MRI brain benign. I have reviewed the following valuation consultant notes: Neurology. I have reviewed the results of the following tests: I have ordered the following tests: Echo, MRI brain pending. I have discussed the care of this patient with the following independent historian: I have independently interpreted the following test below: I have discussed the management of this patient with the following physician: Objective - Vital Signs Vital signs: Vital Signs Temp 98.0 F 07/08/24 04:00 Pulse 59 L 07/08/24 09:50 Resp 20 07/08/24 09:50 BP 123/71 07/08/24 09:50 Pulse Ox 96 07/08/24 09:50 FiO2 Intake & Output 07/07/24 07/08/24 07/08/24 18:59 06:59 18:59 Intake Total 800 Output Total 650 Balance 150 Intake: Intake, IV Titration 300 Amount Sodium Chloride 0.9% 1, 300 000 ml @ 100 mls/hr IV . Q10H [facility] Rx#:[id number] Oral 500 Output: Urine 650 Other: Voiding Method Urinal # Voids 1 # Bowel Movements 0 - Labs CBC & Chem 7: 07/06/24 20:01 07/06/24 20:01
--- NOTE | 2024-07-08 17:00 | MR ---
EXAMINATION TYPE: MR brain wo con DATE OF EXAM: 07/08/2024 COMPARISON: CT brain 2 days earlier. HISTORY: CVA TECHNIQUE: Multiplanar, multisequence imaging of the brain and brainstem is performed without IV cont rast. FINDINGS: Diffusion weighted images demonstrate no evidence of a recent infarct or other diffusion abnormality. There is mild ventricular and sulcal prominence. There are multifocal confluent areas of T2 hyperinte nsity seen throughout the white matter bilaterally most prominent at the periventricular levels. Invo lvement in the luke is seen. Midline structures demonstrate normal morphology. The craniocervical junction appears within normal limits. Normal vascular flow voids are present. The visualized sinuses are clear and the globes are i ntact. IMPRESSION: 1. No MRI evidence for a recent infarct. 2. There is mild diffuse age-related cerebral atrophy and moderate to advanced probable chronic small vessel ischemic change noted. [facility], , 07/08/2024 4:58 PM
[2024-07-09 08:29] VITALS: TEMP 97.9
--- NOTE | 2024-07-09 11:20 | P.PN ---
Subjective Progress Note Date: 07/08/24 Patient was initially seen by Dr. Enoch Sorto. Please refer to his note for details. Patient is a 64-year-old male came with vertigo with nausea and vomiting. Pending stroke workup. Patient was seen for a follow-up. Patient states the nausea is gone, but still feels slightly dizzy. He describes dizziness as spinning sensation. He also has a bad headache. When he stands, feels like he is on a ship. All symptoms started Monday night, 3 days ago. He could not get out of bed. He has to crawl to the bed from bathroom. He stayed in bed all day Monday and noticed his blood pressure was of 160/110. At first he blamed it on taking new cholesterol medication. Patient admits to hearing clicking sounds in the right ear and sometimes feels in the back of the head. He denies any hearing loss although he admits to having some hard of hearing. Patient states he quit tobacco after he had stroke in May 2019. Prior to that he smoked 1 pack/day for 43 years. Patient states that he has history of dizzy episode 1 time in May 2024 when he was driving the [place], got dizzy spinning, felt will pass out. He parked his car, started feeling nauseous, threw up and felt better. Patient states that it lasted only for couple minutes. Some of the workup during this hospital visit consisted of: Lipid panel is triglyceride 624, cholesterol is 234, LDL 79 and HDL is 30 I reviewed the rest of the lab workup. CT of the head is reported as no acute intracranial abnormality identified. Personally reviewed the CT and I agree there is no acute or subacute stroke CT angiography of the head and neck is reported as no evidence of dissection of cervical internal carotid artery or vertebral artery. No any evidence of significant stenosis at the carotid bifurcation. No evidence of intracranial high-grade stenosis or intracranial aneurysm. Objective - Vital Signs Vital signs: Vital Signs Temp 98.0 F 07/08/24 04:00 Pulse 60 07/08/24 18:41 Resp 16 07/08/24 15:22 BP 136/87 07/08/24 18:41 Pulse Ox 96 07/08/24 18:41 FiO2 Intake & Output 07/08/24 07/08/24 07/09/24 06:59 18:59 06:59 Intake Total 800 Output Total 650 Balance 150 Intake: Intake, IV Titration 300 Amount Sodium Chloride 0.9% 1, 300 000 ml @ 100 mls/hr IV . Q10H [facility] Rx#:[id number] Oral 500 Output: Urine 650 Other: Voiding Method Urinal - Exam Mental status, speech and language functions are normal. Cranial nerves are normal. Hearing is slightly decreased in the left as compared to right. On muscle strength testing there is no pronator drift strength is normal in arms and legs. Sensory to touch is equal with no neglect. No ataxia for [id number] or [id number]-wc-[id number] testing. Patient walked fairly stable. - Labs CBC & Chem 7: 07/06/24 20:01 07/06/24 20:01 Assessment and Plan Assessment: This is a 64-year-old gentleman who presented emergency department because of nausea vomiting and dizziness and has been having the symptoms for the last 2 to 3 days. Acute vertigo with nausea vomiting seems more peripheral. No focal deficit on examination History of coronary artery status post stent History of stroke in 2019 with subjective right sided weakness and dysarthria according to the patient Dyslipidemia Ex tobacco use Plan: MRI of the brain without contrast revealed no MRI evidence of recent infarct. There is mild diffuse age-related cerebral atrophy and moderate to advanced probable chronic small vessel ischemic change noted. I personally reviewed MRI agree with the findings. Lipid panel with cholesterol 234, LDL 79, HDL 30 and triglycerides 624. Patient on Crestor 20 mg daily. I would recommend increasing Crestor to 40 mg daily, if no contraindications. Await 2D echo Dr. Enoch Sorto has spoken to the primary team and recommend changing meclizine 25 mg 1 tablet 3 times daily as needed to scheduled to do that for 7 days and after that to do that for as needed. Patient also received one-time Valium 5 mg IV. Patient received Benadryl and is on Benadryl as well as Zofran as needed Patient was started on aspirin 81 mg daily by the primary team for concern for stroke. Continue neurochecks Cardiac monitoring PT OT and [employer] are consulted Will defer the rest of the medical management to primary other specialist For DVT prophylaxis the patient is on Lovenox Neurologically clear once echo is cleared. If symptoms recur, suggest follow-up with ENT specialist.
--- NOTE | 2024-07-09 13:13 | CA ---
Transthoracic Echo Report Name: Stuart Maloney Age: 64 Gender: M : 1960 Exam Date: 07/08/2024 15:45 Exam Location: [place] [facility] Ht (in): 69 Wt (lb): 220 Ordering Physician: Hardy Fofana DO Attending/Referring Phys: [id number], Ct [employer] Superintendent Carmen Nicholas RDCS Procedure CPT: Indications: Thrombus Cardiac Hx: Technical Quality: Good Contrast 1: Total Dose (mL): Contrast 2: Total Dose (mL): MEASUREMENTS (Male / Female) Normal Values 2D ECHO LV Diastolic Diameter PLAX 5.2 cm 4.2 - 5.9 / 3.9 - 5.3 cm LV Systolic Diameter PLAX 3.3 cm IVS Diastolic Thickness 1.1 cm 0.6 - 1.0 / 0.6 - 0.9 cm LVPW Diastolic Thickness 0.9 cm 0.6 - 1.0 / 0.6 - 0.9 cm LV Relative Wall Thickness 0.4 LVOT Diameter 2.4 cm Aortic Root Diameter 3.6 cm LV Diastolic Volume MOD BP 132.6 cm??? 67 - 155 / 56 - 104 cm??? LV Systolic Volume MOD BP 51.9 cm??? 22 - 58 / 19 - 49 cm??? LV Ejection Fraction MOD BP 60.9 % >= 55 % LV Cardiac Index MOD BP 1768.9 cm???/min???m??? LV Diastolic Volume MOD 4C 106.5 cm??? LV Systolic Volume MOD 4C 44.5 cm??? LV Ejection Fraction MOD 4C 58.2 % LV Cardiac Index MOD 4C 1358.7 cm???/min???m??? LV Diastolic Length 4C 7.9 cm LV Systolic Length 4C 7.2 cm LV Diastolic Volume MOD 2C 157.8 cm??? LV Systolic Volume MOD 2C 59.1 cm??? LV Ejection Fraction MOD 2C 62.6 % LV Cardiac Index MOD 2C 2164.2 cm???/min???m??? LV Diastolic Length 2C 8.3 cm LV Systolic Length 2C 6.9 cm LA Volume 62.1 cm??? 18 - 58 / 22 - 52 cm??? LA Volume Index 27.8 cm???/m??? 16 - 28 cm???/m??? Ascending Aorta Diameter 4.0 cm DOPPLER AV Peak Velocity 143.5 cm/s AV Peak Gradient 8.2 mmHg AV Mean Velocity 93.6 cm/s AV Mean Gradient 4.1 mmHg AV Velocity Time Integral 32.2 cm LVOT Peak Velocity 89.7 cm/s LVOT Peak Gradient 3.2 mmHg LVOT Velocity Time Integral 19.5 cm LVOT Stroke Volume 89.8 cm??? LVOT Stroke Volume Index 41.8 ml/m??? LVOT Cardiac Index 1968.4 cm???/min???m??? AV Area Cont Eq vti 2.8 cm??? AV Area Cont Eq pk 2.9 cm??? MV Area PHT 4.2 cm??? Mitral E Point Velocity 70.7 cm/s Mitral A Point Velocity 39.7 cm/s Mitral E to A Ratio 1.8 MV Deceleration Time 180.1 ms PV Peak Velocity 90.4 cm/s PV Peak Gradient 3.3 mmHg FINDINGS Left Ventricle Left ventricular ejection fraction is estimated at 55-60%. Mildly increased septal wall thickness. Left ventricular cavity size normal. No obvious regional wall motion abnormalities. Right Ventricle Normal right ventricular size and function. Unable to estimate the right ventricular systolic pressure. Right Atrium Normal right atrial size. Left Atrium Mildly increased left atrial volume. Mitral Valve Structurally normal mitral valve. No evidence for mitral valve prolapse. No mitral stenosis. Trace mitral regurgitation. Aortic Valve Trileaflet aortic valve. No aortic stenosis. No aortic regurgitation. Tricuspid Valve Structurally normal tricuspid valve. No tricuspid stenosis. Trace tricuspid regurgitation. Pulmonic Valve Structurally normal pulmonic valve. No pulmonic stenosis. No pulmonic regurgitation. Pericardium No pericardial effusion. Aorta Aortic annulus normal. Ascending aorta mildly enlarged. CONCLUSIONS LVEF 55% No obvious regional wall motion abnormality Normal RV size and systolic function Mild left atrial dilatation No significant valvular dysfunction Previewed by: Dr Colton Tirado (Electronically Signed) Final Date: 09 July 2024 13:12
[2024-07-09 15:12] VITALS: BP 144/94; PULSE 81; RESP 20
--- NOTE | 2024-07-09 15:22 | P.DS ---
Providers Date of admission: 07/08/24 10:42 Expected date of discharge: 07/09/24 Attending physician: Alma Mario MD Consults: 07/06/24 20:27 Consult Physician Routine Consulting Provider: Enoch Sorto Consult Reason/Comments: vertigo Do you want consulting provider notified?: Yes Primary care physician: [facility] Hospital Course: Discharge Diagnosis: Peripheral vertigo Headache Hypertension Orthostatic hypotension Dyslipidemia Hypertriglyceridemia CAD Anxiety/depression Lung cancer Hospital Course: 64-year-old male with past medical history of CVA/TIA in 2019, hyperlipidemia, hypertension, CAD, and lung CA presented to the ED for dizziness with associated nausea and vomiting. Vitals on admission T 98, HR 56, RR 20, BP 158/102, O2 saturation 97% on RA. EKG shows sinus bradycardia with rate of 59 bpm and QTc [address] brain showed possible old small right sided lacunar infarct. CTA showed no evidence of intracranial high-grade stenosis or intracranial aneurysm. Patient is admitted for further workup and management. MRI brain showed no evidence of recent infarct. Echocardiogram showed LVEF 55%, no significant valvular dysfunction. Patient was started on meclizine scheduled which improved his symptoms. Patient also has mild orthostatic hypotension, received IV fluids. Triglycerides were 624, total cholesterol 234, LDL 79. Neurology was consulted. Rosuvastatin increased to 40 mg daily, also started on fenofibrate. Outpatient follow-up with PCP. Patient seen and examined at bedside. Vital signs reviewed and stable. General: Nontoxic, no distress, appears at stated age Derm: Warm, dry Head: Atraumatic, normocephalic, symmetric Eyes: EOMI, no lid lag, anicteric sclera Mouth: No lip lesion, mucus membranes moist Cardiovascular: S1S2 reg, no murmur Lungs: CTA bilateral, no rhonchi, no rales, no accessory muscle use Abdominal: Soft, nontender to palpation, no guarding, no appreciable organomegaly Ext: No gross muscle atrophy, no edema, no contractures Neuro: CN II-XI grossly intact, no focal neuro deficits Psych: Alert, oriented, appropriate affect A total of 36 minutes of time were spent preparing this complex discharge summary. Patient was discharged on 07/09/2024 at 1428. Patient Condition at Discharge: Stable Plan - Discharge Summary New Discharge Prescriptions: New Meclizine [Antivert] 25 mg PO TID #60 tab Fenofibrate 50 mg PO DAILY #90 capsule Continue Jackson-3/Dha/Epa/Fish Oil [Fish Oil 1,000 mg Softgel] 1 cap PO BID Nitroglycerin Sl Tabs [Nitrostat] 0.4 mg SL Q5M PRN PRN Reason: Chest Pain Cholecalciferol (Vitamin D3) [Vitamin D3 (50 Mcg = 2000 Iu)] 50 mcg PO DAILY busPIRone HCL 15 mg PO BID Albuterol Inhaler [Ventolin Hfa Inhaler] 1 puff INHALATION RT-Q4H PRN PRN Reason: Shortness Of Breath PARoxetine HCL [Paxil] 30 mg PO BID Gabapentin [Neurontin] 400 mg PO TID carvediloL [Coreg] 12.5 mg PO BID buPROPion SR [Wellbutrin SR] 150 mg PO BID Aspirin EC [Ecotrin Low Dose] 81 mg PO DAILY Changed Rosuvastatin Calcium [Crestor] 40 mg PO DAILY #0 Discharge Medication List Albuterol Inhaler [Ventolin Hfa Inhaler] 1 puff INHALATION RT-Q4H PRN 07/07/24 [History] Aspirin EC [Ecotrin Low Dose] 81 mg PO DAILY 07/07/24 [History] Cholecalciferol (Vitamin D3) [Vitamin D3 (50 Mcg = 2000 Iu)] 50 mcg PO DAILY 07/07/24 [History] Gabapentin [Neurontin] 400 mg PO TID 07/07/24 [History] Nitroglycerin Sl Tabs [Nitrostat] 0.4 mg SL Q5M PRN 07/07/24 [History] Jackson-3/Dha/Epa/Fish Oil [Fish Oil 1,000 mg Softgel] 1 cap PO BID 07/07/24 [History] PARoxetine HCL [Paxil] 30 mg PO BID 07/07/24 [History] buPROPion SR [Wellbutrin SR] 150 mg PO BID 07/07/24 [History] busPIRone HCL 15 mg PO BID 07/07/24 [History] carvediloL [Coreg] 12.5 mg PO BID 07/07/24 [History] Fenofibrate 50 mg PO DAILY #90 capsule 07/09/24 [Rx] Meclizine [Antivert] 25 mg PO TID #60 tab 07/09/24 [Rx] Rosuvastatin Calcium [Crestor] 40 mg PO DAILY #0 01/07/25 [Rx] Follow up Appointment(s)/Referral(s): [facility],Clinic [Primary Care Provider] - 1-2 days Patient Instructions/Handouts: Low Fat Diet (DC), Vertigo (DC), Lipid Profile (GEN), Benign Paroxysmal Positional Vertigo (DC) Activity/Diet/Wound Care/Special Instructions: Please see PCP. Discharge Disposition: HOME SELF-CARE
[2024-07-10] MEDS ORDERED: Rosuvastatin Calcium [Crestor] 40 MG Tablet PO SCH (09:00)
--- NOTE | 2024-07-10 11:43 | P.PN ---
Subjective Progress Note Date: 07/09/24 07/09/2024: Patient was seen for a follow-up. Patient wants to go home. Still gets dizzy when he turns his head quickly. Otherwise doing much better. No other focal symptoms. 07/08/2024: Patient was initially seen by Dr. Enoch Sorto. Please refer to his note for details. Patient is a 64-year-old male came with vertigo with nausea and vomiting. Pending stroke workup. Patient was seen for a follow-up. Patient states the nausea is gone, but still feels slightly dizzy. He describes dizziness as spinning sensation. He also has a bad headache. When he stands, feels like he is on a ship. All symptoms started Monday night, 3 days ago. He could not get out of bed. He has to crawl to the bed from bathroom. He stayed in bed all day Monday and noticed his blood pressure was of 160/110. At first he blamed it on taking new cholesterol medication. Patient admits to hearing clicking sounds in the right ear and sometimes feels in the back of the head. He denies any hearing loss although he admits to having some hard of hearing. Patient states he quit tobacco after he had stroke in May 2019. Prior to that he smoked 1 pack/day for 43 years. Patient states that he has history of dizzy episode 1 time in May 2024 when he was driving the [place], got dizzy spinning, felt will pass out. He parked his car, started feeling nauseous, threw up and felt better. Patient states that it lasted only for couple minutes. Some of the workup during this hospital visit consisted of: Lipid panel is triglyceride 624, cholesterol is 234, LDL 79 and HDL is 30 I reviewed the rest of the lab workup. CT of the head is reported as no acute intracranial abnormality identified. Personally reviewed the CT and I agree there is no acute or subacute stroke CT angiography of the head and neck is reported as no evidence of dissection of cervical internal carotid artery or vertebral artery. No any evidence of significant stenosis at the carotid bifurcation. No evidence of intracranial high-grade stenosis or intracranial aneurysm. Objective - Vital Signs Vital signs: Vital Signs Temp 97.9 F 07/09/24 08:24 Pulse 53 L 07/09/24 11:16 Resp 18 07/09/24 11:16 BP 145/95 07/09/24 11:16 Pulse Ox 98 07/09/24 11:16 FiO2 - Exam Mental status, speech and language functions are normal. Cranial nerves are normal. Hearing is slightly decreased in the left as compared to right. On muscle strength testing there is no pronator drift strength is normal in arms and legs. Sensory to touch is equal with no neglect. No ataxia for [id number] or dyno-su-sske testing. Patient walked fairly stable. - Labs CBC & Chem 7: 07/06/24 20:01 07/06/24 20:01 Assessment and Plan Assessment: This is a 64-year-old gentleman who presented emergency department because of nausea vomiting and dizziness and has been having the symptoms for the last 2 to 3 days. Acute vertigo with nausea vomiting seems more peripheral. No focal deficit on examination History of coronary artery status post stent History of stroke in 2019 with subjective right sided weakness and dysarthria according to the patient Dyslipidemia Ex tobacco use Plan: MRI of the brain without contrast revealed no MRI evidence of recent infarct. There is mild diffuse age-related cerebral atrophy and moderate to advanced probable chronic small vessel ischemic change noted. I personally reviewed MRI agree with the findings. Lipid panel with cholesterol 234, LDL 79, HDL 30 and triglycerides 624. Patient on Crestor 20 mg daily. I would recommend increasing Crestor to 40 mg daily, if no contraindications. 2D echo revealed normal LVEF 55 to 60%. Mildly decreased septal wall thickness. No obvious regional wall motion abnormalities. Mildly increased left atrial volume. No valvular abnormalities. Dr. Enoch Sorto has spoken to the primary team and recommend changing meclizine 25 mg 1 tablet 3 times daily as needed to scheduled to do that for 7 days and after that to do that for as needed. Patient also received one-time Valium 5 mg IV. Patient received Benadryl and is on Benadryl as well as Zofran as needed Patient was started on aspirin 81 mg daily by the primary team for concern for stroke. Continue neurochecks Cardiac monitoring PT OT and [employer] are consulted Will defer the rest of the medical management to primary other specialist For DVT prophylaxis the patient is on Lovenox Neurologically clear for discharge. Recommend outpatient follow-up with ENT specialist.
== END 2024-07-09 15:10 | disposition home or self-care (01) | DRG 149 ==
LOC: EC 19:15 → 3SCARD 20:26 → UNDOADMOB 20:28 → 3SCARD 21:35 → OBSVTOIN 07-08 10:42 → INTOOBSV 07-08 10:42 → 3SCARD 07-08 18:08 → 4SSUR 07-09 11:01 → UNDODISIN 07-09 15:10
PROVIDERS: ADMIT Internal Medicine; ATTEND Internal Medicine
DX: H81.399 Other peripheral vertigo, unspecified ear (principal); I69.351 Hemiplegia and hemiparesis following cerebral infarction affecting right dominant side; I69.322 Dysarthria following cerebral infarction; I10 Essential (primary) hypertension; F32.A Depression, unspecified; I25.10 Atherosclerotic heart disease of native coronary artery without angina pectoris; E78.1 Pure hyperglyceridemia; I95.1 Orthostatic hypotension; F41.9 Anxiety disorder, unspecified; R00.1 Bradycardia, unspecified; H91.90 Unspecified hearing loss, unspecified ear; R51.9 Headache, unspecified; I25.2 Old myocardial infarction; Z79.82 Long term (current) use of aspirin; Z79.899 Other long term (current) drug therapy; Z87.891 Personal history of nicotine dependence; Z95.5 Presence of coronary angioplasty implant and graft; Z85.118 Personal history of other malignant neoplasm of bronchus and lung
CPT/HCPCS: 36415; 70450; 70496; 70498; 70551; 80053; 80061; 82550; 83721; 84484; 85025; 85610; 85730; 93005; 93306; 96361; 96372; 96374; 96375; 96376; 99285